=== PATIENT | male | born 1985 | race Caucasian/White ===

== ENCOUNTER 2017-07-09 17:15 | Inpatient (IN) | payer BC, OTHER ==
[2017-07-09] MEDS: morphine 4 MG/ML VIAL IV (19:04)
[2017-07-09] MEDS: ONDANSETRON 4 MG INJ IV (19:05)
[2017-07-09] MEDS: SODIUM CHLORIDE 0.9% 1L BAG IV* (19:05)
[2017-07-09 19:09] LABS: ADD MAN DIFF? NO
[2017-07-09] MEDS: ACETAMINOPHEN 500 MG TAB PO (19:09)
[2017-07-09 19:13] LABS: BASOPHILS % 0.2 % (0.0-2.0); EOSINOPHILS % 0.1 % (0.0-7.0); HEMATOCRIT 32.2 % (42.0-52.0); HEMOGLOBIN 10.3 g/dl (14.0-18.0); LYMPHOCYTES # 1.3 10^3/ul (0.8-2.9); LYMPHOCYTES % 7.3 % (15.0-51.0); MEAN CORPUSCULAR HEMOGLOBIN 24.2 pg (29.0-33.0); MEAN CORPUSCULAR VOLUME 75.8 fl (82.0-101.0); MEAN PLATELET VOLUME 9.1 fl (7.4-10.4); MONOCYTE # 1.2 10^3/ul (0.3-0.9); MONOCYTES % 6.7 % (0.0-11.0); NEUTROPHIL # 15.4 10^3/ul (1.6-7.5); NEUTROPHILS % 85.2 % (39.0-77.0); PLATELET COUNT 539 10^3/UL (140-415); RED BLOOD COUNT 4.25 10^6/ul (4.70-6.10); RED CELL DISTRIBUTION WIDTH 14.6 % (11.5-14.5)
[2017-07-09 19:34] LABS: ALANINE AMINOTRANSFERASE 57 IU/L (13-69); ALBUMIN 3.9 g/dl (3.3-4.9); ALBUMIN/GLOBULIN RATIO 0.78; ALKALINE PHOSPHATASE 403 IU/L (42-121); ANION GAP 18 (8-16); ASPARTATE AMINO TRANSFERASE 53 IU/L (15-46); BILIRUBIN,INDIRECT 0.4 mg/dl (0-1.1); BILIRUBIN,TOTAL 0.4 mg/dl (0.2-1.3); BLOOD UREA NITROGEN 15 mg/dl (7-20); CALCIUM 9.1 mg/dl (8.4-10.2); CARBON DIOXIDE 29 mmol/L (21-31); CHLORIDE 96 mmol/L (97-110); CREATININE 0.88 mg/dl (0.61-1.24); GLUCOSE 116 mg/dl (70-220); LIPASE 145 U/L (23-300); POTASSIUM 3.9 mmol/L (3.5-5.1); SODIUM 139 mmol/L (135-144); TOTAL PROTEIN 8.9 g/dl (6.1-8.1)
[2017-07-09 19:41] LABS: LACTIC ACID 1.3 mmol/L (0.5-2.0)
[2017-07-09 19:46] LABS: TROPONIN-I < 0.012 ng/ml (0.000-0.120)
[2017-07-09] MEDS: PIPER-TAZO 3.375 GM IV (PMX) 100 ML IVPB (19:46)
[2017-07-09 19:48] LABS: INR 1.12; PARTIAL THROMBOPLASTIN TIME 36.5 Sec (25.0-35.0); PROTIME 14.6 Sec (11.9-14.9); PT RATIO 1.1
[2017-07-09 20:21] LABS: ADD UMIC YES; UR ASCORBIC ACID NEGATIVE (NEGATIVE); UR BILIRUBIN (Dip) NEGATIVE (NEGATIVE); UR BLOOD (Dip) 1+ mg/dL (NEGATIVE); UR CLARITY CLEAR (CLEAR); UR COLOR YELLOW (YELLOW); UR GLUCOSE (Dip) NEGATIVE (NEGATIVE); UR KETONES (Dip) NEGATIVE (NEGATIVE); UR LEUKOCYTE ESTERASE (Dip) NEGATIVE Leu/ul (NEGATIVE); UR NITRITE (Dip) NEGATIVE (NEGATIVE); UR RBC 1 /HPF (0-5); UR SPECIFIC GRAVITY (Dip) 1.014 (1.003-1.030); UR TOTAL PROTEIN (Dip) 2+ mg/dl (NEGATIVE); UR UROBILINOGEN (Dip) 2+ mg/dL (NEGATIVE); UR WBC 2 /HPF (0-5)
[2017-07-09] MEDS: IOHEXOL 300MG/ML 150 ML BTL (20:40)
[2017-07-09] MEDS: SOD CHLORIDE 0.9% 100 ML (20:40)
[2017-07-09] MEDS: VANCOMYCIN 1 GM (PMX) 250 ML IVPB (21:00)
[2017-07-09 21:47] LABS: LACTIC ACID 0.8 mmol/L (0.5-2.0)
[2017-07-09] MEDS: HYDROmorphONE 1 MG/5 ML IV SYRINGE IV (22:06)
[2017-07-09] MEDS ORDERED: VANCOMYCIN IV PER PHARMACY XX (22:30)
[2017-07-09] MEDS ORDERED: NACL 0.9% 3 ML SYG IV (22:30)
[2017-07-09] MEDS ORDERED: ONDANSETRON 4 MG INJ IV (22:30)
[2017-07-09] MEDS: SOD CHLORIDE 0.9% 1,000 ML IV (22:47)
[2017-07-09 23:01] LABS: GAMMA GLUTAMYL TRANSPEPTIDASE 221 IU/L (0-50)
[2017-07-10] MEDS: SOD CHLORIDE 0.9% 500 ML IV ×2 (01:14→06:00)
[2017-07-10] MEDS: ACETAMINOPHEN 325 MG TAB PO (01:26)
[2017-07-10] MEDS: HYDROmorphONE 0.5 MG/0.5 ML SYG IV ×4 (01:32→22:36)
[2017-07-10] MEDS: PIPER-TAZO 3.375 GM IV (PMX) 100 ML IVPB ×3 (02:51→11:31)
[2017-07-10] MEDS: VANCOMYCIN 1 GM 250 ML IVPB ×2 (04:28→14:30)
[2017-07-10 06:27] LABS: ADD MAN DIFF? NO
[2017-07-10 06:36] LABS: WHITE BLOOD COUNT 18.7 10^3/ul (4.8-10.8)
[2017-07-10 06:36] LABS: ABNORMAL IP MESSAGE 1; BASOPHILS % 0.2 % (0.0-2.0); EOSINOPHILS % 0.1 % (0.0-7.0); HEMATOCRIT 28.8 % (42.0-52.0); HEMOGLOBIN 9.2 g/dl (14.0-18.0); LYMPHOCYTES # 1.7 10^3/ul (0.8-2.9); LYMPHOCYTES % 9.2 % (15.0-51.0); MEAN CORPUSCULAR HEMOGLOBIN 24.7 pg (29.0-33.0); MEAN CORPUSCULAR HGB CONC 31.9 g/dl (32.0-37.0); MEAN CORPUSCULAR VOLUME 77.2 fl (82.0-101.0); MEAN PLATELET VOLUME 9.3 fl (7.4-10.4); MONOCYTE # 1.7 10^3/ul (0.3-0.9); MONOCYTES % 8.9 % (0.0-11.0); NEUTROPHIL # 15.1 10^3/ul (1.6-7.5); NEUTROPHILS % 80.7 % (39.0-77.0); PLATELET COUNT 482 10^3/UL (140-415); POSITIVE DIFF @See below; RED BLOOD COUNT 3.73 10^6/ul (4.70-6.10); RED CELL DISTRIBUTION WIDTH 14.8 % (11.5-14.5)
[2017-07-10] MEDS: IBUPROFEN 600 MG TAB PO (06:43)
[2017-07-10 06:58] LABS: IRON 26 ug/dl (35-150)
[2017-07-10 06:58] LABS: HEMOGLOBIN A1C 5.8 % (0-5.9)
[2017-07-10 07:06] LABS: ALANINE AMINOTRANSFERASE 46 IU/L (13-69); ALBUMIN 3.1 g/dl (3.3-4.9); ALBUMIN/GLOBULIN RATIO 0.75; ALKALINE PHOSPHATASE 344 IU/L (42-121); ANION GAP 12 (8-16); ASPARTATE AMINO TRANSFERASE 40 IU/L (15-46); BILIRUBIN,INDIRECT 0.3 mg/dl (0-1.1); BILIRUBIN,TOTAL 0.3 mg/dl (0.2-1.3); BLOOD UREA NITROGEN 10 mg/dl (7-20); CALCIUM 8.4 mg/dl (8.4-10.2); CARBON DIOXIDE 30 mmol/L (21-31); CHLORIDE 105 mmol/L (97-110); CHOL/HDL RATIO 7.7 RATIO; CHOLESTEROL 147 mg/dl (100-200); CREATININE 0.96 mg/dl (0.61-1.24); GLUCOSE 88 mg/dl (70-220); HDL CHOLESTEROL 19 mg/dl (28-63); LDL CHOLESTEROL,CALCULATED 107 mg/dl; MAGNESIUM 1.9 mg/dl (1.7-2.5); POTASSIUM 4.2 mmol/L (3.5-5.1); SODIUM 143 mmol/L (135-144); TOTAL PROTEIN 7.2 g/dl (6.1-8.1); TRIGLYCERIDES 107 mg/dl (0-149)
[2017-07-10 07:07] LABS: % IRON SATURATION 14 % SAT (22-52); TOTAL IRON BINDING CAPACITY 192 ug/dl (241-421)
[2017-07-10 08:00] LABS: CARCINOEMBRYONIC ANTIGEN 0.3 ng/ml (0.0-5.0)
[2017-07-10] MEDS: SOD CHLORIDE 0.9% 1,000 ML IV ×2 (08:21→08:23)
[2017-07-10] MEDS ORDERED: MIDAZOLAM 1 MG/ML 2 ML INJ (12:13)
[2017-07-10] MEDS ORDERED: FENTAnyl 50 MCG/ML VIAL ×2 (12:13→12:36)
[2017-07-10] MEDS ORDERED: PROPOFOL 20 ML (12:13)
[2017-07-10] MEDS ORDERED: CEFAZOLIN 1 GM INJ (12:36)
[2017-07-10] MEDS ORDERED: METOCLOPRAMIDE 10 MG INJ (12:38)
[2017-07-10] MEDS ORDERED: KETOROLAC 30 MG INJ (12:38)
[2017-07-10] MEDS ORDERED: DEXAMETHASONE 4 MG/ML 1 ML INJ (12:38)
[2017-07-10] MEDS ORDERED: ONDANSETRON 4 MG INJ (12:38)
[2017-07-10] MEDS ORDERED: BUPIVACAINE 0.5% (SDV) 30 ML INJ (12:42)
[2017-07-10] MEDS ORDERED: IBUPROFEN 600 MG TAB PO (13:00)
[2017-07-10] MEDS ORDERED: ACETAMINOPHEN 325 MG TAB PO (13:00)
[2017-07-10] MEDS ORDERED: HYDROmorphONE 0.5 MG/0.5 ML SYG IV (13:00)
[2017-07-10] MEDS ORDERED: HYDROCODONE/APAP (10/325) TAB PO (13:00)
[2017-07-10] MEDS ORDERED: ONDANSETRON 4 MG INJ IV ×2 (13:00→13:30)
[2017-07-10] MEDS: metroNIDAZOLE 500 MG/NS (PMX) 100 ML IVPB ×2 (13:24→21:23)
[2017-07-10] MEDS ORDERED: FENTAnyl 50 MCG/ML VIAL IV ×3 (13:30)
[2017-07-10] MEDS ORDERED: OXYCODONE/ACETAMINOPHEN (5/325) TAB PO ×2 (13:30)
[2017-07-10] MEDS ORDERED: hydrALAzine 20 MG INJ IV (13:30)
[2017-07-10] MEDS ORDERED: METOCLOPRAMIDE 10 MG INJ IV (13:30)
[2017-07-10] MEDS ORDERED: HYDROmorphONE (0.2 MG/ML) 10ML SYG IV ×3 (13:30)
[2017-07-10] MEDS ORDERED: EPHEDrine SULFATE 50 MG/5 ML SYG IV (13:30)
[2017-07-10] MEDS ORDERED: MEPERIDINE 25 MG INJ IV (13:30)
[2017-07-10] MEDS ORDERED: LABETALOL HCL 20MG INJ IV (13:30)
[2017-07-10] MEDS ORDERED: DIPHENHYDRAMINE 50 MG INJ IV (13:30)
[2017-07-10] MEDS: CIPROFLOXACIN 400MG/D5W 200 ML IVPB (14:00)
[2017-07-10] MEDS: D5-NS + KCL 20 MEQ 1,000 ML IV (14:44)
[2017-07-10] MEDS: metroNIDAZOLE 500 MG TAB PO (15:58)
[2017-07-10] MEDS: CIPROFLOXACIN 500 MG TAB NGT (18:38)
[2017-07-10] MEDS ORDERED: VANCOMYCIN 1 GM 250 ML IVPB (23:00)
[2017-07-11] MEDS: CIPROFLOXACIN 400MG/D5W 200 ML IVPB (01:59)
[2017-07-11] MEDS: metroNIDAZOLE 500 MG/NS (PMX) 100 ML IVPB (05:13)
[2017-07-11] MEDS: HYDROmorphONE 0.5 MG/0.5 ML SYG IV ×4 (05:26→21:25)
[2017-07-11 05:59] LABS: BLOOD UREA NITROGEN 9 mg/dl (7-20)
[2017-07-11 05:59] LABS: CREATININE 0.78 mg/dl (0.61-1.24)
[2017-07-11] MEDS: D5-NS + KCL 20 MEQ 1,000 ML IV ×2 (06:47→13:26)
[2017-07-11] MEDS: ENOXAPARIN 40 MG/0.4 ML SYG SC (06:47)
[2017-07-11] MEDS: CIPROFLOXACIN 500 MG TAB NGT (17:33)
[2017-07-11] MEDS: metroNIDAZOLE 500 MG TAB PO (21:25)
[2017-07-11 23:51] LABS: ALPHA FETOPROTEIN 0.94 IU/L (0.00-7.21)
[2017-07-12] MEDS: HYDROmorphONE 0.5 MG/0.5 ML SYG IV ×2 (02:01→08:15)
[2017-07-12] MEDS: ENOXAPARIN 40 MG/0.4 ML SYG SC (05:52)
[2017-07-12] MEDS: CIPROFLOXACIN 500 MG TAB NGT ×2 (05:52→17:48)
[2017-07-12] MEDS: metroNIDAZOLE 500 MG TAB PO ×3 (05:52→22:08)
[2017-07-12] MEDS: HYDROmorphONE 2 MG/ML SYG IV ×3 (11:42→23:09)
[2017-07-12] MEDS: hydrALAzine 20 MG INJ IV (15:13)
[2017-07-12] MEDS: NS + KCL 20 MEQ 1,000 ML IV ×2 (15:13→22:30)
[2017-07-12] MEDS ORDERED: MIDAZOLAM 1 MG/ML 2 ML INJ (19:23)
[2017-07-12] MEDS ORDERED: IOHEXOL 300MG/ML 30 ML BTL (19:40)
[2017-07-12] MEDS ORDERED: CEFAZOLIN 1 GM INJ (20:12)
[2017-07-12] MEDS ORDERED: LIDOCAINE 2% (SDV) 5 ML INJ (20:12)
[2017-07-12] MEDS ORDERED: PROPOFOL 20 ML (20:12)
[2017-07-12 20:13] LABS: PSA, FREE 0.1 ng/mL
[2017-07-12] MEDS ORDERED: ONDANSETRON 4 MG INJ (20:13)
[2017-07-12] MEDS ORDERED: LABETALOL HCL 20MG INJ (20:26)
[2017-07-12] MEDS ORDERED: hydrALAzine 20 MG INJ IV (20:30)
[2017-07-12] MEDS ORDERED: DIPHENHYDRAMINE 50 MG INJ IV (20:30)
[2017-07-12] MEDS ORDERED: FENTAnyl 50 MCG/ML VIAL IV (20:30)
[2017-07-12] MEDS ORDERED: MEPERIDINE 25 MG INJ IV (20:30)
[2017-07-12] MEDS ORDERED: ONDANSETRON 4 MG INJ IV (20:30)
[2017-07-12] MEDS ORDERED: HYDROmorphONE (0.2 MG/ML) 10ML SYG IV ×2 (20:30)
[2017-07-12] MEDS: IOHEXOL 300MG/ML 30 ML BTL (20:31)
[2017-07-12] MEDS: LABETALOL HCL 20MG INJ IV (20:56)
[2017-07-13] MEDS: HYDROmorphONE 2 MG/ML SYG IV ×3 (03:25→12:24)
[2017-07-13] MEDS: metroNIDAZOLE 500 MG TAB PO ×2 (06:15→14:33)
[2017-07-13] MEDS: CIPROFLOXACIN 500 MG TAB NGT (06:15)
[2017-07-13] MEDS: ENOXAPARIN 40 MG/0.4 ML SYG SC (06:35)
[2017-07-13 06:46] LABS: ADD MAN DIFF? NO
[2017-07-13 06:58] LABS: BASOPHILS % 0.4 % (0.0-2.0); EOSINOPHILS # 0.2 10^3/ul (0.0-0.5); EOSINOPHILS % 2.2 % (0.0-7.0); HEMATOCRIT 29.8 % (42.0-52.0); HEMOGLOBIN 9.5 g/dl (14.0-18.0); LYMPHOCYTES # 1.7 10^3/ul (0.8-2.9); LYMPHOCYTES % 16.7 % (15.0-51.0); MEAN CORPUSCULAR HEMOGLOBIN 24.2 pg (29.0-33.0); MEAN CORPUSCULAR HGB CONC 31.9 g/dl (32.0-37.0); MEAN CORPUSCULAR VOLUME 75.8 fl (82.0-101.0); MEAN PLATELET VOLUME 8.9 fl (7.4-10.4); MONOCYTES % 9.9 % (0.0-11.0); NEUTROPHIL # 6.9 10^3/ul (1.6-7.5); NEUTROPHILS % 69.8 % (39.0-77.0); PLATELET COUNT 598 10^3/UL (140-415); RED BLOOD COUNT 3.93 10^6/ul (4.70-6.10); RED CELL DISTRIBUTION WIDTH 14.8 % (11.5-14.5)
[2017-07-13 06:58] LABS: WHITE BLOOD COUNT 9.9 10^3/ul (4.8-10.8)
[2017-07-13 07:17] LABS: ANION GAP 16 (8-16); BLOOD UREA NITROGEN 12 mg/dl (7-20); CALCIUM 8.8 mg/dl (8.4-10.2); CARBON DIOXIDE 28 mmol/L (21-31); CHLORIDE 104 mmol/L (97-110); CREATININE 0.81 mg/dl (0.61-1.24); GLUCOSE 100 mg/dl (70-220); POTASSIUM 3.6 mmol/L (3.5-5.1); SODIUM 144 mmol/L (135-144)
[2017-07-13] MEDS: NS + KCL 20 MEQ 1,000 ML IV (08:02)
[2017-07-13] MEDS: METOPROLOL (XL) 50 MG TAB PO (11:28)
[2017-07-13] MEDS: AMLODIPINE 5 MG TAB PO (11:30)
== END 2017-07-13 15:45 | disposition home or self-care (01) | DRG 345 ==
LOC: MS4 22:26 → E/R 17:15 → PP2 07-10 19:12
PROC: 0D9P0ZZ Drainage of Rectum, Open Approach (ICD-10-PCS; principal; 2017-07-10 11:11)
PROC: BT14ZZZ Fluoroscopy of Kidneys, Ureters and Bladder (ICD-10-PCS; 2017-07-10 12:27)
PROC: 0T778DZ Dilation of Left Ureter with Intraluminal Device, Via Natural or Artificial Opening Endoscopic (ICD-10-PCS; 2017-07-10 12:27)
DX: K61.1 Rectal abscess (principal); N13.1 Hydronephrosis with ureteral stricture, not elsewhere classified; C79.9 Secondary malignant neoplasm of unspecified site; Z85.47 Personal history of malignant neoplasm of testis; D50.9 Iron deficiency anemia, unspecified; R74.8 Abnormal levels of other serum enzymes; E66.9 Obesity, unspecified; I10 Essential (primary) hypertension; F41.9 Anxiety disorder, unspecified; R59.0 Localized enlarged lymph nodes; Z68.30 Body mass index [BMI] 30.0-30.9, adult
CPT/HCPCS: 36415; 71045; 74018; 74177; 74430; 76705; 80048; 80053; 80061; 81001; 82105; 82378; 82565; 82977; 83036; 83540; 83605; 83690; 83735; 84153; 84154; 84443; 84484; 84520; 84702; 85025; 85610; 85730; 87040; 87070; 87075; 87086; 93005; 96365; 96366; 96367; 96375; 99291-25

== ENCOUNTER 2018-03-16 05:19 | Emergency (ER) | payer BC ==
[2018-03-16] MEDS: morphine 4 MG/ML VIAL IV (06:08)
[2018-03-16 06:25] LABS: ADD MAN DIFF? NO
[2018-03-16 06:29] LABS: BASOPHILS % 0.5 % (0.0-2.0); EOSINOPHILS # 0.1 10^3/ul (0.0-0.5); EOSINOPHILS % 1.3 % (0.0-7.0); HEMOGLOBIN 10.5 g/dl (14.0-18.0); LYMPHOCYTES # 1.6 10^3/ul (0.8-2.9); LYMPHOCYTES % 20.4 % (15.0-51.0); MEAN CORPUSCULAR HEMOGLOBIN 23.3 pg (29.0-33.0); MEAN CORPUSCULAR HGB CONC 30.9 g/dl (32.0-37.0); MEAN CORPUSCULAR VOLUME 75.4 fl (82.0-101.0); MEAN PLATELET VOLUME 9.2 fl (7.4-10.4); MONOCYTE # 0.6 10^3/ul (0.3-0.9); MONOCYTES % 7.3 % (0.0-11.0); NEUTROPHIL # 5.4 10^3/ul (1.6-7.5); NEUTROPHILS % 70.2 % (39.0-77.0); PLATELET COUNT 482 10^3/UL (140-415); RED BLOOD COUNT 4.51 10^6/ul (4.70-6.10); RED CELL DISTRIBUTION WIDTH 14.3 % (11.5-14.5)
[2018-03-16 06:29] LABS: WHITE BLOOD COUNT 7.7 10^3/ul (4.8-10.8)
[2018-03-16 06:39] LABS: ANION GAP 4 (5-13); BLOOD UREA NITROGEN 14 mg/dl (7-20); CALCIUM 9.5 mg/dl (8.4-10.2); CARBON DIOXIDE 29 mmol/L (21-31); CHLORIDE 109 mmol/L (97-110); CREATININE 0.84 mg/dl (0.61-1.24); Estimated GFR > 60 mL/min (>60); GLUCOSE 113 mg/dl (70-220); POTASSIUM 4.7 mmol/L (3.5-5.1); SODIUM 142 mmol/L (135-144)
[2018-03-16] MEDS: SOD CHLORIDE 0.9% 100 ML (07:05)
[2018-03-16] MEDS: IOHEXOL 300MG/ML 150 ML BTL (07:05)
[2018-03-16] MEDS: HYDROmorphONE 0.5 MG/0.5 ML SYG IV (08:30)
== END 2018-03-16 08:53 | disposition home or self-care (01) ==
LOC: E/R 08:53
DX: M54.9 Dorsalgia, unspecified (principal); I10 Essential (primary) hypertension; C62.90 Malignant neoplasm of unspecified testis, unspecified whether descended or undescended
CPT/HCPCS: 36415; 71045; 71260; 80048; 85025; 96374; 96375; 99285-25

== ENCOUNTER 2018-04-15 19:42 | Inpatient (IN) | payer BC ==
[2018-04-15 21:26] LABS: ADD MAN DIFF? NO
[2018-04-15 21:29] LABS: WHITE BLOOD COUNT 16.2 10^3/ul (4.8-10.8)
[2018-04-15 21:29] LABS: BASOPHILS % 0.2 % (0.0-2.0); HEMATOCRIT 29.5 % (42.0-52.0); HEMOGLOBIN 9.2 g/dl (14.0-18.0); LYMPHOCYTES # 1.5 10^3/ul (0.8-2.9); LYMPHOCYTES % 9.3 % (15.0-51.0); MEAN CORPUSCULAR HEMOGLOBIN 22.1 pg (29.0-33.0); MEAN CORPUSCULAR HGB CONC 31.2 g/dl (32.0-37.0); MEAN CORPUSCULAR VOLUME 70.9 fl (82.0-101.0); MEAN PLATELET VOLUME 8.5 fl (7.4-10.4); MONOCYTE # 1.3 10^3/ul (0.3-0.9); MONOCYTES % 8.2 % (0.0-11.0); NEUTROPHIL # 13.2 10^3/ul (1.6-7.5); NEUTROPHILS % 81.4 % (39.0-77.0); PLATELET COUNT 577 10^3/UL (140-415); RED BLOOD COUNT 4.16 10^6/ul (4.70-6.10); RED CELL DISTRIBUTION WIDTH 16.4 % (11.5-14.5)
[2018-04-15] MEDS: IBUPROFEN 600 MG TAB PO (21:37)
[2018-04-15] MEDS: SODIUM CHLORIDE 0.9% 1L BAG IV* (21:38)
[2018-04-15] MEDS: VANCOMYCIN 1 GM (PMX) 250 ML IVPB (21:39)
[2018-04-15] MEDS: CEFTRIAXONE 1 GM/50 ML (PMX) 50 ML IVPB (21:43)
[2018-04-15 21:45] LABS: ALANINE AMINOTRANSFERASE 20 IU/L (13-69); ALBUMIN 3.9 g/dl (3.3-4.9); ALBUMIN/GLOBULIN RATIO 0.69; ALKALINE PHOSPHATASE 791 IU/L (42-121); ANION GAP 14 (5-13); ASPARTATE AMINO TRANSFERASE 63 IU/L (15-46); BILIRUBIN,INDIRECT 0.4 mg/dl (0-1.1); BILIRUBIN,TOTAL 0.4 mg/dl (0.2-1.3); BLOOD UREA NITROGEN 18 mg/dl (7-20); CALCIUM 9.4 mg/dl (8.4-10.2); CARBON DIOXIDE 25 mmol/L (21-31); CHLORIDE 95 mmol/L (97-110); CREATININE 1.27 mg/dl (0.61-1.24); Estimated GFR > 60 mL/min (>60); GLUCOSE 127 mg/dl (70-220); LIPASE 55 U/L (23-300); POTASSIUM 4.3 mmol/L (3.5-5.1); SODIUM 134 mmol/L (135-144); TOTAL PROTEIN 9.5 g/dl (6.1-8.1)
[2018-04-15 21:48] LABS: INR 1.33; PROTIME 16.6 Sec (11.9-14.9); PT RATIO 1.3
[2018-04-15 21:49] LABS: PARTIAL THROMBOPLASTIN TIME 40.5 Sec (23.0-35.0)
[2018-04-15 21:54] LABS: ADD UMIC YES; UR ASCORBIC ACID NEGATIVE (NEGATIVE); UR BILIRUBIN (Dip) NEGATIVE (NEGATIVE); UR BLOOD (Dip) 2+ mg/dL (NEGATIVE); UR CLARITY CLOUDY (CLEAR); UR COLOR AMBER (YELLOW); UR GLUCOSE (Dip) NEGATIVE (NEGATIVE); UR KETONES (Dip) NEGATIVE (NEGATIVE); UR LEUKOCYTE ESTERASE (Dip) NEGATIVE Leu/ul (NEGATIVE); UR MUCUS FEW /HPF (NONE SEEN); UR NITRITE (Dip) NEGATIVE (NEGATIVE); UR RBC 92 /HPF (0-5); UR SPECIFIC GRAVITY (Dip) 1.021 (1.003-1.030); UR TOTAL PROTEIN (Dip) 2+ mg/dl (NEGATIVE); UR UROBILINOGEN (Dip) 2+ mg/dL (NEGATIVE); UR WBC 11 /HPF (0-5)
[2018-04-15 21:56] LABS: TROPONIN-I < 0.012 ng/ml (0.000-0.120)
[2018-04-15] MEDS ORDERED: DOCUSATE SODIUM 100 MG CAP PO (22:30)
[2018-04-15] MEDS ORDERED: BISACODYL (EC) 5 MG TAB PO (22:30)
[2018-04-15] MEDS ORDERED: ONDANSETRON 4 MG INJ IV (22:30)
[2018-04-15] MEDS ORDERED: NACL 0.9% 3 ML SYG IV (22:30)
[2018-04-16] MEDS: AZITHROMYCIN 500MG/NS (PMX) 250 ML IVPB (01:54)
[2018-04-16] MEDS: SOD CHLORIDE 0.9% 1,000 ML IV ×2 (01:54→09:11)
[2018-04-16] MEDS: HYDROmorphONE 2 MG TAB PO ×3 (02:06→19:50)
[2018-04-16 02:20] LABS: LACTIC ACID 1.2 mmol/L (0.5-2.0)
[2018-04-16] MEDS: POLYETHYLENE GLYCOL 17 GM PACKET PO ×2 (02:27→08:21)
[2018-04-16] MEDS: DOCUSATE SODIUM 100 MG CAP PO ×3 (02:27→20:56)
[2018-04-16] MEDS: PIPER-TAZO 3.375 GM IV (PMX) 100 ML IVPB ×4 (05:40→23:47)
[2018-04-16] MEDS ORDERED: VANCOMYCIN IV PER PHARMACY XX (06:00)
[2018-04-16 06:22] LABS: ADD MAN DIFF? NO
[2018-04-16 06:28] LABS: ABNORMAL IP MESSAGE 1; BASOPHILS % 0.1 % (0.0-2.0); EOSINOPHILS % 0.1 % (0.0-7.0); HEMATOCRIT 26.2 % (42.0-52.0); HEMOGLOBIN 8.1 g/dl (14.0-18.0); LYMPHOCYTES # 1.4 10^3/ul (0.8-2.9); LYMPHOCYTES % 8.7 % (15.0-51.0); MEAN CORPUSCULAR HEMOGLOBIN 22.4 pg (29.0-33.0); MEAN CORPUSCULAR HGB CONC 30.9 g/dl (32.0-37.0); MEAN CORPUSCULAR VOLUME 72.4 fl (82.0-101.0); MEAN PLATELET VOLUME 8.6 fl (7.4-10.4); MONOCYTE # 1.8 10^3/ul (0.3-0.9); NEUTROPHIL # 12.7 10^3/ul (1.6-7.5); NEUTROPHILS % 78.9 % (39.0-77.0); PLATELET COUNT 436 10^3/UL (140-415); POSITIVE DIFF @See below; RED BLOOD COUNT 3.62 10^6/ul (4.70-6.10); RED CELL DISTRIBUTION WIDTH 16.5 % (11.5-14.5)
[2018-04-16 06:28] LABS: WHITE BLOOD COUNT 16.1 10^3/ul (4.8-10.8)
[2018-04-16 06:56] LABS: ALANINE AMINOTRANSFERASE 21 IU/L (13-69); ALBUMIN 3.1 g/dl (3.3-4.9); ALBUMIN/GLOBULIN RATIO 0.64; ALKALINE PHOSPHATASE 668 IU/L (42-121); ANION GAP 10 (5-13); ASPARTATE AMINO TRANSFERASE 49 IU/L (15-46); BILIRUBIN,INDIRECT 0.4 mg/dl (0-1.1); BILIRUBIN,TOTAL 0.4 mg/dl (0.2-1.3); BLOOD UREA NITROGEN 15 mg/dl (7-20); CALCIUM 8.5 mg/dl (8.4-10.2); CARBON DIOXIDE 25 mmol/L (21-31); CHLORIDE 105 mmol/L (97-110); CHOL/HDL RATIO 7.5 RATIO; CHOLESTEROL 144 mg/dl (100-200); CREATININE 0.97 mg/dl (0.61-1.24); Estimated GFR > 60 mL/min (>60); GLUCOSE 92 mg/dl (70-220); HDL CHOLESTEROL 19 mg/dl (28-63); LDL CHOLESTEROL,CALCULATED 106 mg/dl; MAGNESIUM 1.7 mg/dl (1.7-2.5); SODIUM 140 mmol/L (135-144); TOTAL PROTEIN 7.9 g/dl (6.1-8.1); TRIGLYCERIDES 93 mg/dl (0-149)
[2018-04-16 07:18] LABS: THYROID STIMULATING HORMONE 0.609 MIU/L (0.465-4.680)
[2018-04-16] MEDS: ENOXAPARIN 40 MG/0.4 ML SYG SC (08:19)
[2018-04-16] MEDS: METOPROLOL (XL) 50 MG TAB PO (08:21)
[2018-04-16] MEDS: AMLODIPINE 5 MG TAB PO (08:22)
[2018-04-16] MEDS ORDERED: VANCOMYCIN HCL 1.25 GM in SOD CHLORIDE 0.9% 250 ML IVPB (09:00)
[2018-04-16] MEDS: VANCOMYCIN 1 GM 250 ML IVPB ×2 (09:36→16:18)
[2018-04-16] MEDS: ACETAMINOPHEN 325 MG TAB PO ×3 (10:18→16:28)
[2018-04-16] MEDS ORDERED: CEFTRIAXONE 1 GM/50 ML (PMX) 50 ML IVPB ×2 (22:30)
[2018-04-16] MEDS: HYDROmorphONE 1 MG/ML SYG IV (23:47)
[2018-04-17] MEDS: VANCOMYCIN 1 GM 250 ML IVPB ×3 (00:48→21:57)
[2018-04-17] MEDS: ACETAMINOPHEN 325 MG TAB PO ×3 (03:32→17:10)
[2018-04-17] MEDS: HYDROmorphONE 1 MG/ML SYG IV ×4 (04:31→20:37)
[2018-04-17] MEDS: SOD CHLORIDE 0.9% 1,000 ML IV (04:31)
[2018-04-17] MEDS: MEROPENEM 1 GM/50ML(PMX) 50 ML IVPB ×2 (05:36→14:00)
[2018-04-17 05:57] LABS: ADD MAN DIFF? NO
[2018-04-17 06:06] LABS: ABNORMAL IP MESSAGE 1; BASOPHILS % 0.2 % (0.0-2.0); EOSINOPHILS % 0.1 % (0.0-7.0); HEMATOCRIT 21.6 % (42.0-52.0); LYMPHOCYTES # 1.6 10^3/ul (0.8-2.9); LYMPHOCYTES % 10.4 % (15.0-51.0); MEAN CORPUSCULAR HGB CONC 31.9 g/dl (32.0-37.0); MEAN PLATELET VOLUME 8.9 fl (7.4-10.4); MONOCYTE # 1.7 10^3/ul (0.3-0.9); NEUTROPHIL # 12.3 10^3/ul (1.6-7.5); NEUTROPHILS % 77.5 % (39.0-77.0); PLATELET COUNT 459 10^3/UL (140-415); POSITIVE DIFF @See below; RED CELL DISTRIBUTION WIDTH 16.6 % (11.5-14.5)
[2018-04-17 06:06] LABS: WHITE BLOOD COUNT 15.8 10^3/ul (4.8-10.8)
[2018-04-17 06:14] LABS: HEMOGLOBIN 6.9 g/dl (14.0-18.0)
[2018-04-17 06:59] LABS: PHOSPHORUS 3.4 mg/dl (2.5-4.9)
[2018-04-17 06:59] LABS: MAGNESIUM 1.8 mg/dl (1.7-2.5)
[2018-04-17 07:07] LABS: ALBUMIN 2.9 g/dl (3.3-4.9); ALBUMIN/GLOBULIN RATIO 0.63; ASPARTATE AMINO TRANSFERASE 38 IU/L (15-46); BILIRUBIN,INDIRECT 0.3 mg/dl (0-1.1); BILIRUBIN,TOTAL 0.3 mg/dl (0.2-1.3); BLOOD UREA NITROGEN 12 mg/dl (7-20); CALCIUM 8.2 mg/dl (8.4-10.2); CARBON DIOXIDE 23 mmol/L (21-31); CHLORIDE 105 mmol/L (97-110); CREATININE 1.08 mg/dl (0.61-1.24); Estimated GFR > 60 mL/min (>60); GLUCOSE 96 mg/dl (70-220); POTASSIUM 3.4 mmol/L (3.5-5.1); TOTAL PROTEIN 7.5 g/dl (6.1-8.1)
[2018-04-17 07:09] LABS: ALANINE AMINOTRANSFERASE 23 IU/L (13-69); SODIUM 136 mmol/L (135-144)
[2018-04-17 07:11] LABS: ALKALINE PHOSPHATASE 585 IU/L (42-121); ANION GAP 8 (5-13)
[2018-04-17 08:33] LABS: VANCOMYCIN,TROUGH 14.8 ug/ml (10.0-20.0)
[2018-04-17] MEDS: POLYETHYLENE GLYCOL 17 GM PACKET PO (09:00)
[2018-04-17] MEDS: DOCUSATE SODIUM 100 MG CAP PO ×2 (09:00→21:00)
[2018-04-17] MEDS: METOPROLOL (XL) 50 MG TAB PO (09:02)
[2018-04-17] MEDS: AMLODIPINE 5 MG TAB PO (09:03)
[2018-04-17] MEDS: ENOXAPARIN 40 MG/0.4 ML SYG SC (09:04)
[2018-04-17] MEDS: HYDROmorphONE 2 MG TAB PO (12:06)
[2018-04-17 12:27] LABS: IRON 11 ug/dl (35-150)
[2018-04-17 12:37] LABS: % IRON SATURATION 6 % SAT (22-52); TOTAL IRON BINDING CAPACITY 176 ug/dl (241-421)
[2018-04-17 13:44] LABS: IMMEDIATE SPIN CROSSMATCH 1 2
[2018-04-17] MEDS: IOHEXOL 300MG/ML 150 ML BTL (17:57)
[2018-04-17] MEDS: SOD CHLORIDE 0.9% 100 ML (17:57)
[2018-04-17] MEDS: BARIUM SULF 2% 450 ML BTL (BERRY SMOOTHIE) PO (19:00)
[2018-04-17] MEDS: POTASSIUM CHLORIDE (SR) 10 MEQ TAB PO (21:55)
[2018-04-17 23:14] LABS: ADD MAN DIFF? NO
[2018-04-17 23:15] LABS: BASOPHILS % 0.1 % (0.0-2.0); EOSINOPHILS % 0.2 % (0.0-7.0); HEMATOCRIT 27.5 % (42.0-52.0); HEMOGLOBIN 8.6 g/dl (14.0-18.0); LYMPHOCYTES # 1.5 10^3/ul (0.8-2.9); LYMPHOCYTES % 9.5 % (15.0-51.0); MEAN CORPUSCULAR HEMOGLOBIN 22.9 pg (29.0-33.0); MEAN CORPUSCULAR HGB CONC 31.3 g/dl (32.0-37.0); MEAN CORPUSCULAR VOLUME 73.3 fl (82.0-101.0); MEAN PLATELET VOLUME 8.3 fl (7.4-10.4); MONOCYTE # 1.3 10^3/ul (0.3-0.9); NEUTROPHIL # 12.7 10^3/ul (1.6-7.5); NEUTROPHILS % 81.5 % (39.0-77.0); PLATELET COUNT 536 10^3/UL (140-415); RED BLOOD COUNT 3.75 10^6/ul (4.70-6.10); RED CELL DISTRIBUTION WIDTH 18.3 % (11.5-14.5)
[2018-04-17 23:15] LABS: WHITE BLOOD COUNT 15.6 10^3/ul (4.8-10.8)
[2018-04-18] MEDS: MEROPENEM 1 GM/50ML(PMX) 50 ML IVPB ×3 (00:18→21:58)
[2018-04-18] MEDS: HYDROmorphONE 1 MG/ML SYG IV ×6 (00:40→21:58)
[2018-04-18] MEDS: SOD FERRIC GLUC COMPLX 125 MG in SOD CHLORIDE 0.9% 100 ML IVPB (01:06)
[2018-04-18] MEDS: MAGNESIUM SULFATE 2 GM/50 ML 50 ML IVPB (03:06)
[2018-04-18] MEDS: SOD CHLORIDE 0.9% IVPB ×2 (04:53→23:16)
[2018-04-18] MEDS: VORICONAZOLE IVPB ×2 (04:53→23:16)
[2018-04-18 05:37] LABS: ADD MAN DIFF? NO
[2018-04-18 05:43] LABS: WHITE BLOOD COUNT 14.4 10^3/ul (4.8-10.8)
[2018-04-18 05:43] LABS: BASOPHILS % 0.3 % (0.0-2.0); EOSINOPHILS % 0.1 % (0.0-7.0); HEMATOCRIT 27.1 % (42.0-52.0); HEMOGLOBIN 8.5 g/dl (14.0-18.0); LYMPHOCYTES # 1.6 10^3/ul (0.8-2.9); LYMPHOCYTES % 11.3 % (15.0-51.0); MEAN CORPUSCULAR HGB CONC 31.4 g/dl (32.0-37.0); MEAN CORPUSCULAR VOLUME 73.2 fl (82.0-101.0); MEAN PLATELET VOLUME 8.8 fl (7.4-10.4); MONOCYTE # 1.2 10^3/ul (0.3-0.9); NEUTROPHIL # 11.5 10^3/ul (1.6-7.5); NEUTROPHILS % 79.5 % (39.0-77.0); PLATELET COUNT 556 10^3/UL (140-415); RED CELL DISTRIBUTION WIDTH 18.2 % (11.5-14.5)
[2018-04-18 05:44] LABS: RETICULOCYTE RBC 3.65
[2018-04-18 05:44] LABS: RETICULOCYTE COUNT # 0.033 X10^6 (0.020-0.110); RETICULOCYTE COUNT % 0.9 % (0.5-1.5)
[2018-04-18 06:24] LABS: MAGNESIUM 2.5 mg/dl (1.7-2.5)
[2018-04-18 06:24] LABS: PHOSPHORUS 3.5 mg/dl (2.5-4.9)
[2018-04-18 06:30] LABS: B-TYPE NATRIURETIC PEPTIDE 186 PG/ML (0-125)
[2018-04-18 07:02] LABS: ALANINE AMINOTRANSFERASE 16 IU/L (13-69); ALBUMIN 3.2 g/dl (3.3-4.9); ALBUMIN/GLOBULIN RATIO 0.66; ALKALINE PHOSPHATASE 541 IU/L (42-121); ANION GAP 11 (5-13); ASPARTATE AMINO TRANSFERASE 35 IU/L (15-46); BILIRUBIN,INDIRECT 0.4 mg/dl (0-1.1); BILIRUBIN,TOTAL 0.4 mg/dl (0.2-1.3); BLOOD UREA NITROGEN 8 mg/dl (7-20); CARBON DIOXIDE 24 mmol/L (21-31); CHLORIDE 103 mmol/L (97-110); CREATININE 0.81 mg/dl (0.61-1.24); Estimated GFR > 60 mL/min (>60); GLUCOSE 93 mg/dl (70-220); POTASSIUM 3.9 mmol/L (3.5-5.1); SODIUM 138 mmol/L (135-144)
[2018-04-18] MEDS: POTASSIUM CHLORIDE (SR) 20 MEQ TAB PO (08:53)
[2018-04-18] MEDS: METOPROLOL (XL) 50 MG TAB PO (08:53)
[2018-04-18] MEDS: OSELTAMIVIR 75 MG CAP PO ×2 (08:54→20:17)
[2018-04-18] MEDS: DOCUSATE SODIUM 100 MG CAP PO ×2 (08:54→20:17)
[2018-04-18] MEDS: POLYETHYLENE GLYCOL 17 GM PACKET PO (08:54)
[2018-04-18] MEDS: AMLODIPINE 5 MG TAB PO (08:54)
[2018-04-18] MEDS: DOXYCYCLINE 100 MG TAB PO ×2 (08:54→20:17)
[2018-04-18] MEDS: VANCOMYCIN 1 GM 250 ML IVPB ×2 (10:57→19:51)
[2018-04-18 11:01] LABS: HEMATOCRIT 26.3 % (42.0-52.0); HEMOGLOBIN 8.3 g/dl (14.0-18.0)
[2018-04-18] MEDS: HEPARIN 5,000 UNIT/1 ML VIAL SC (20:19)
[2018-04-18] MEDS: ACETAMINOPHEN 325 MG TAB PO (21:58)
[2018-04-19] MEDS: HYDROmorphONE 1 MG/ML SYG IV ×5 (03:22→20:41)
[2018-04-19] MEDS: VANCOMYCIN 1 GM 250 ML IVPB ×3 (03:24→18:35)
[2018-04-19 06:27] LABS: ADD MAN DIFF? NO
[2018-04-19 06:30] LABS: WHITE BLOOD COUNT 10.1 10^3/ul (4.8-10.8)
[2018-04-19 06:30] LABS: BASOPHILS % 0.2 % (0.0-2.0); EOSINOPHILS # 0.1 10^3/ul (0.0-0.5); EOSINOPHILS % 1.1 % (0.0-7.0); HEMATOCRIT 26.3 % (42.0-52.0); HEMOGLOBIN 8.4 g/dl (14.0-18.0); LYMPHOCYTES # 1.7 10^3/ul (0.8-2.9); LYMPHOCYTES % 16.8 % (15.0-51.0); MEAN CORPUSCULAR HEMOGLOBIN 23.1 pg (29.0-33.0); MEAN CORPUSCULAR HGB CONC 31.9 g/dl (32.0-37.0); MEAN CORPUSCULAR VOLUME 72.5 fl (82.0-101.0); MEAN PLATELET VOLUME 8.4 fl (7.4-10.4); MONOCYTES % 9.8 % (0.0-11.0); NEUTROPHIL # 7.2 10^3/ul (1.6-7.5); NEUTROPHILS % 71.4 % (39.0-77.0); PLATELET COUNT 531 10^3/UL (140-415); RED BLOOD COUNT 3.63 10^6/ul (4.70-6.10); RED CELL DISTRIBUTION WIDTH 18.8 % (11.5-14.5)
[2018-04-19 06:52] LABS: INR 1.18; PROTIME 15.1 Sec (11.9-14.9); PT RATIO 1.2
[2018-04-19 06:53] LABS: PARTIAL THROMBOPLASTIN TIME 40.8 Sec (23.0-35.0)
[2018-04-19] MEDS: MEROPENEM 1 GM/50ML(PMX) 50 ML IVPB ×3 (06:54→21:02)
[2018-04-19 07:02] LABS: ALANINE AMINOTRANSFERASE 21 IU/L (13-69); ALBUMIN 3.2 g/dl (3.3-4.9); ALBUMIN/GLOBULIN RATIO 0.66; ALKALINE PHOSPHATASE 538 IU/L (42-121); ANION GAP 10 (5-13); ASPARTATE AMINO TRANSFERASE 40 IU/L (15-46); BILIRUBIN,INDIRECT 0.1 mg/dl (0-1.1); BILIRUBIN,TOTAL 0.1 mg/dl (0.2-1.3); BLOOD UREA NITROGEN 8 mg/dl (7-20); CALCIUM 9.2 mg/dl (8.4-10.2); CARBON DIOXIDE 28 mmol/L (21-31); CHLORIDE 105 mmol/L (97-110); CREATININE 0.83 mg/dl (0.61-1.24); Estimated GFR > 60 mL/min (>60); GLUCOSE 82 mg/dl (70-220); POTASSIUM 4.3 mmol/L (3.5-5.1); SODIUM 143 mmol/L (135-144)
[2018-04-19] MEDS: AMLODIPINE 5 MG TAB PO ×2 (08:29→13:19)
[2018-04-19] MEDS: DOCUSATE SODIUM 100 MG CAP PO ×3 (08:29→20:53)
[2018-04-19] MEDS: POLYETHYLENE GLYCOL 17 GM PACKET PO ×2 (08:29→13:19)
[2018-04-19] MEDS ORDERED: VORICONAZOLE IVPB (09:00)
[2018-04-19] MEDS ORDERED: SOD CHLORIDE 0.9% IVPB (09:00)
[2018-04-19] MEDS: DOXYCYCLINE 100 MG TAB PO ×3 (09:00→21:02)
[2018-04-19] MEDS: OSELTAMIVIR 75 MG CAP PO ×3 (09:00→21:02)
[2018-04-19] MEDS: METOPROLOL (XL) 50 MG TAB PO ×2 (09:00→13:19)
[2018-04-19] MEDS: VORICONAZOLE IVPB ×2 (13:11→23:38)
[2018-04-19] MEDS: SOD CHLORIDE 0.9% IVPB ×2 (13:11→23:38)
[2018-04-20] MEDS: HYDROmorphONE 1 MG/ML SYG IV ×5 (01:12→23:00)
[2018-04-20] MEDS: ACETAMINOPHEN 325 MG TAB PO (01:20)
[2018-04-20] MEDS: VANCOMYCIN 1 GM 250 ML IVPB ×3 (03:11→20:35)
[2018-04-20] MEDS: MEROPENEM 1 GM/50ML(PMX) 50 ML IVPB ×3 (05:54→23:03)
[2018-04-20] MEDS ORDERED: LIDOCAINE 2% (SDV) 5 ML INJ (07:00)
[2018-04-20] MEDS ORDERED: PROPOFOL 200 MG INJ (07:00)
[2018-04-20] MEDS: POLYETHYLENE GLYCOL 17 GM PACKET PO (08:19)
[2018-04-20] MEDS: DOCUSATE SODIUM 100 MG CAP PO ×2 (08:19→20:36)
[2018-04-20] MEDS: METOPROLOL (XL) 50 MG TAB PO (08:20)
[2018-04-20] MEDS: OSELTAMIVIR 75 MG CAP PO ×2 (08:20→20:36)
[2018-04-20] MEDS: AMLODIPINE 5 MG TAB PO (08:20)
[2018-04-20] MEDS: DOXYCYCLINE 100 MG TAB PO ×2 (08:21→20:36)
[2018-04-20] MEDS ORDERED: MIDAZOLAM 1 MG/ML 2 ML INJ (12:44)
[2018-04-20] MEDS ORDERED: LABETALOL HCL 20MG INJ (12:49)
[2018-04-20] MEDS: LIDOCAINE 1%/EPI (1:100,000) (MDV) 20 ML (12:56)
[2018-04-20] MEDS: BUPIVACAINE 0.25% (MPF) 30 ML INJ (12:58)
[2018-04-20] MEDS ORDERED: ACETAMINOPHEN 325 MG TAB PO (14:00)
[2018-04-20] MEDS ORDERED: LABETALOL HCL 20MG INJ IV (14:00)
[2018-04-20] MEDS ORDERED: ONDANSETRON 4 MG INJ IV ×2 (14:00)
[2018-04-20] MEDS ORDERED: NACL 0.9% 3 ML SYG IV (14:00)
[2018-04-20] MEDS ORDERED: HYDROmorphONE 1 MG/5 ML IV SYRINGE IV ×3 (14:00→14:10)
[2018-04-20] MEDS: HYDROCODONE/APAP (5/325) TAB PO (14:38)
[2018-04-20] MEDS: morphine 2 MG INJ IV (14:39)
[2018-04-20] MEDS: HYDROmorphONE 1 MG/5 ML IV SYRINGE IV (14:39)
[2018-04-20] MEDS: SOD CHLORIDE 0.9% IVPB (15:21)
[2018-04-20] MEDS: VORICONAZOLE IVPB (15:21)
[2018-04-20 18:35] LABS: VANCOMYCIN,TROUGH 17.1 ug/ml (10.0-20.0)
[2018-04-20] MEDS: METOPROLOL 25 MG TAB PO (20:36)
[2018-04-21] MEDS: VORICONAZOLE IVPB ×2 (00:34→14:08)
[2018-04-21] MEDS: SOD CHLORIDE 0.9% IVPB ×2 (00:34→14:08)
[2018-04-21] MEDS: HYDROmorphONE 1 MG/ML SYG IV ×7 (02:59→23:55)
[2018-04-21] MEDS: VANCOMYCIN 1 GM 250 ML IVPB ×3 (03:46→19:34)
[2018-04-21] MEDS: ACETAMINOPHEN 325 MG TAB PO ×3 (05:24→20:53)
[2018-04-21] MEDS: MEROPENEM 1 GM/50ML(PMX) 50 ML IVPB ×3 (05:25→23:00)
[2018-04-21 06:53] LABS: BLOOD UREA NITROGEN 7 mg/dl (7-20)
[2018-04-21 06:53] LABS: CREATININE 0.79 mg/dl (0.61-1.24)
[2018-04-21] MEDS: DOCUSATE SODIUM 100 MG CAP PO ×2 (08:11→21:03)
[2018-04-21] MEDS: OSELTAMIVIR 75 MG CAP PO ×2 (08:11→21:03)
[2018-04-21] MEDS: DOXYCYCLINE 100 MG TAB PO ×2 (08:11→21:03)
[2018-04-21] MEDS: METOPROLOL (XL) 50 MG TAB PO (08:12)
[2018-04-21] MEDS: METOPROLOL 25 MG TAB PO (08:12)
[2018-04-21] MEDS: POLYETHYLENE GLYCOL 17 GM PACKET PO (08:13)
[2018-04-21] MEDS: AMLODIPINE 5 MG TAB PO (08:55)
[2018-04-21 16:23] LABS: INFLUENZA VIRUS A/B SOURCE SWAB
[2018-04-21 19:52] LABS: NIL 0.02 IU/mL; QUANTIFERON(R)-TB GOLD NEGATIVE (NEGATIVE); TB-NIL 0.01 IU/mL
[2018-04-21 23:42] LABS: CRYPTOCOCCAL ANTIGEN - SOURCE SERUM
[2018-04-22 00:32] LABS: HISTOPLASMA GALACTOMANNAN AG U <0.5
[2018-04-22] MEDS: SOD CHLORIDE 0.9% IVPB ×2 (02:02→12:29)
[2018-04-22] MEDS: VORICONAZOLE IVPB ×2 (02:02→12:29)
[2018-04-22] MEDS: morphine 2 MG INJ IV ×2 (02:11→05:05)
[2018-04-22] MEDS: HYDROmorphONE 1 MG/ML SYG IV ×4 (03:54→16:16)
[2018-04-22] MEDS: VANCOMYCIN 1 GM 250 ML IVPB ×2 (05:52→11:04)
[2018-04-22] MEDS: MEROPENEM 1 GM/50ML(PMX) 50 ML IVPB ×2 (07:21→14:10)
[2018-04-22] MEDS: DOXYCYCLINE 100 MG TAB PO (08:03)
[2018-04-22] MEDS: POLYETHYLENE GLYCOL 17 GM PACKET PO (08:03)
[2018-04-22] MEDS: OSELTAMIVIR 75 MG CAP PO (08:04)
[2018-04-22] MEDS: AMLODIPINE 5 MG TAB PO (08:04)
[2018-04-22] MEDS: DOCUSATE SODIUM 100 MG CAP PO (08:05)
[2018-04-22] MEDS: METOPROLOL (XL) 50 MG TAB PO (08:05)
[2018-04-22 15:27] LABS: HIV 1&2 ANTIBODY NEGATIVE (NEGATIVE)
[2018-04-22] MEDS: ACETAMINOPHEN 325 MG TAB PO (16:16)
[2018-04-22 20:17] LABS: ADD UMIC YES; UR ASCORBIC ACID NEGATIVE (NEGATIVE); UR BACTERIA FEW /HPF (NONE SEEN); UR BILIRUBIN (Dip) NEGATIVE (NEGATIVE); UR BLOOD (Dip) 1+ mg/dL (NEGATIVE); UR CLARITY TURBID (CLEAR); UR COLOR AMBER (YELLOW); UR GLUCOSE (Dip) NEGATIVE (NEGATIVE); UR KETONES (Dip) NEGATIVE (NEGATIVE); UR LEUKOCYTE ESTERASE (Dip) NEGATIVE Leu/ul (NEGATIVE); UR NITRITE (Dip) NEGATIVE (NEGATIVE); UR RBC 4 /HPF (0-5); UR SPECIFIC GRAVITY (Dip) 1.012 (1.003-1.030); UR TOTAL PROTEIN (Dip) 1+ mg/dl (NEGATIVE); UR UROBILINOGEN (Dip) NEGATIVE (NEGATIVE); UR WBC 5 /HPF (0-5)
[2018-04-23 12:46] LABS: PROCALCITONIN 0.19 ng/mL (<0.10)
== END 2018-04-22 18:53 | disposition short-term general hospital (02) | DRG 853 ==
LOC: PP2 21:37 → E/R 19:42 → 6WM 04-18 21:20
PROC: 07B20ZX Excision of Left Neck Lymphatic, Open Approach, Diagnostic (ICD-10-PCS; principal; 2018-04-20 11:30)
PROC: 30233N1 Transfusion of Nonautologous Red Blood Cells into Peripheral Vein, Percutaneous Approach (ICD-10-PCS; 2018-04-20 12:38)
DX: A41.9 Sepsis, unspecified organism (principal); J18.9 Pneumonia, unspecified organism; N17.9 Acute kidney failure, unspecified; J91.0 Malignant pleural effusion; J98.19 Other pulmonary collapse; R18.0 Malignant ascites; C77.8 Secondary and unspecified malignant neoplasm of lymph nodes of multiple regions; C79.00 Secondary malignant neoplasm of unspecified kidney and renal pelvis; C78.00 Secondary malignant neoplasm of unspecified lung; C78.7 Secondary malignant neoplasm of liver and intrahepatic bile duct; C79.89 Secondary malignant neoplasm of other specified sites; D63.0 Anemia in neoplastic disease; I10 Essential (primary) hypertension; R73.03 Prediabetes; M25.562 Pain in left knee; Z85.47 Personal history of malignant neoplasm of testis
CPT/HCPCS: 36415; 36430; 70492; 71045; 71260; 74177; 76705; 80053; 80061; 80202; 81001; 82565; 82728; 83036; 83540; 83605; 83690; 83735; 83880; 84100; 84145; 84443; 84484; 84520; 85014; 85018; 85025; 85045; 85610; 85730; 86480; 86635; 86641; 86703; 86850; 86900; 86901; 86920; 87040; 87086; 87275; 87276; 87279; 87280; 87385; 87400; 87449; 87502; 88307; 88341; 88342; 93005; 93306; 99291-25

== ENCOUNTER 2018-05-18 12:47 | Inpatient (IN) | payer BC ==
[2018-05-18 14:04] LABS: WHITE BLOOD COUNT 8.9 10^3/ul (4.8-10.8)
[2018-05-18 14:04] LABS: ABNORMAL IP MESSAGE 1; HEMATOCRIT 21.9 % (42.0-52.0); HEMOGLOBIN 7.1 g/dl (14.0-18.0); MEAN CORPUSCULAR HEMOGLOBIN 23.9 pg (29.0-33.0); MEAN CORPUSCULAR HGB CONC 32.4 g/dl (32.0-37.0); MEAN CORPUSCULAR VOLUME 73.7 fl (82.0-101.0); MEAN PLATELET VOLUME 9.6 fl (7.4-10.4); NUCLEATED RED BLOOD CELLS% 0.4 /100WBC (0.0-0.0); PLATELET COUNT 42 10^3/UL (140-415); POSITIVE DIFF @See below; RED BLOOD COUNT 2.97 10^6/ul (4.70-6.10); RED CELL DISTRIBUTION WIDTH 19.8 % (11.5-14.5)
[2018-05-18 14:05] LABS: ADD MAN DIFF? YES
[2018-05-18] MEDS: SOD CHLORIDE 0.9% 500 ML IV (14:06)
[2018-05-18 14:20] LABS: ANION GAP 9 (5-13); BLOOD UREA NITROGEN 12 mg/dl (7-20); CARBON DIOXIDE 22 mmol/L (21-31); CHLORIDE 108 mmol/L (97-110); CREATININE 0.93 mg/dl (0.61-1.24); Estimated GFR > 60 mL/min (>60); GLUCOSE 110 mg/dl (70-220); LIPASE 381 U/L (23-300); POTASSIUM 3.1 mmol/L (3.5-5.1); SODIUM 139 mmol/L (135-144)
[2018-05-18 14:23] LABS: PROTIME 15.3 Sec (11.9-14.9); PT RATIO 1.2
[2018-05-18 14:24] LABS: PARTIAL THROMBOPLASTIN TIME 34.8 Sec (23.0-35.0)
[2018-05-18 14:38] LABS: ANISOCYTOSIS 2+ (0-0); BAND NEUTROPHILS #M 2.1 10^3/ul (0.0-0.6); BAND NEUTROPHILS % (M) 24 % (0-4); ERYTHROBLAST% (NRBC) (M) 1 % (0-0); HYPOCHROMASIA 2+ (0-0); LYMPHOCYTES #M 1.2 10^3/ul (0.8-2.9); LYMPHOCYTES % (M) 14 % (15-51); METAMYELOCYTES %M 1 % (0-0); MICROCYTOSIS 2+ (0-0); MONOCYTE #M 0.9 10^3/ul (0.3-0.9); MONOCYTES % (M) 11 % (0-11); PLATELET ESTIMATE DECREASED; POLYCHROMASIA 1+ (0-0); PROMYELOCYTES % (M) 1 % (0-0); RBC MORPHOLOGY COMMENT @See below; SEG NEUT #M 4.2 10^3/ul (1.6-7.5); SEGMENTED NEUTROPHILS (M) % 45 % (39-77); SMUDGE%M 2 % (0-0); WBC MORPHOLOGY COMMENT @See below
[2018-05-18] MEDS: HYDROmorphONE 2 MG/ML SYG IV (14:55)
[2018-05-18] MEDS ORDERED: D5W-0.45 NACL + KCL 20 MEQ 1,000 ML IV (15:10)
[2018-05-18] MEDS ORDERED: morphine 2 MG INJ IV (15:30)
[2018-05-18] MEDS ORDERED: POTASSIUM CHLORIDE 100 ML IVPB (15:30)
[2018-05-18] MEDS ORDERED: NACL 0.9% 3 ML SYG IV (15:30)
[2018-05-18] MEDS ORDERED: ACETAMINOPHEN 325 MG TAB PO (15:30)
[2018-05-18] MEDS ORDERED: ONDANSETRON 4 MG INJ IV (15:30)
[2018-05-18] MEDS ORDERED: POTASSIUM CHLORIDE (SR) 20 MEQ TAB PO (16:30)
[2018-05-18 16:52] LABS: IMMEDIATE SPIN CROSSMATCH 1 2
[2018-05-18] MEDS: OXYCODONE/ACETAMINOPHEN (10/325) TAB PO (19:57)
[2018-05-18] MEDS: POTASSIUM CHLORIDE 20 MEQ POWDER FOR ORAL SOLN PO (20:47)
[2018-05-18] MEDS: SOD CHLORIDE 0.9% 1,000 ML IV (20:48)
[2018-05-18] MEDS: HYDROmorphONE 0.5 MG/0.5 ML SYG IV (20:48)
[2018-05-19] MEDS: HYDROmorphONE 0.5 MG/0.5 ML SYG IV ×5 (01:12→13:53)
[2018-05-19] MEDS: PANTOPRAZOLE 40 MG INJ IV (05:17)
[2018-05-19 05:22] LABS: WHITE BLOOD COUNT 12.6 10^3/ul (4.8-10.8)
[2018-05-19 05:22] LABS: ABNORMAL IP MESSAGE 1; HEMATOCRIT 25.1 % (42.0-52.0); HEMOGLOBIN 8.1 g/dl (14.0-18.0); MEAN CORPUSCULAR HEMOGLOBIN 24.5 pg (29.0-33.0); MEAN CORPUSCULAR HGB CONC 32.3 g/dl (32.0-37.0); MEAN CORPUSCULAR VOLUME 76.1 fl (82.0-101.0); MEAN PLATELET VOLUME 9.1 fl (7.4-10.4); NUCLEATED RED BLOOD CELLS% 0.2 /100WBC (0.0-0.0); PLATELET COUNT 39 10^3/UL (140-415); POSITIVE DIFF @See below; RED CELL DISTRIBUTION WIDTH 20.6 % (11.5-14.5)
[2018-05-19 05:24] LABS: ADD MAN DIFF? YES
[2018-05-19 05:47] LABS: HEMOGLOBIN A1C 5.6 % (0-5.9)
[2018-05-19 06:08] LABS: ALANINE AMINOTRANSFERASE 60 IU/L (13-69); ALBUMIN 3.4 g/dl (3.3-4.9); ALBUMIN/GLOBULIN RATIO 0.82; ALKALINE PHOSPHATASE 303 IU/L (42-121); ANION GAP 6 (5-13); ASPARTATE AMINO TRANSFERASE 26 IU/L (15-46); BILIRUBIN,INDIRECT 0.2 mg/dl (0-1.1); BILIRUBIN,TOTAL 0.2 mg/dl (0.2-1.3); BLOOD UREA NITROGEN 11 mg/dl (7-20); CALCIUM 8.9 mg/dl (8.4-10.2); CARBON DIOXIDE 24 mmol/L (21-31); CHLORIDE 112 mmol/L (97-110); CREATININE 0.95 mg/dl (0.61-1.24); Estimated GFR > 60 mL/min (>60); GLUCOSE 86 mg/dl (70-220); MAGNESIUM 1.9 mg/dl (1.7-2.5); POTASSIUM 3.5 mmol/L (3.5-5.1); SODIUM 142 mmol/L (135-144); TOTAL PROTEIN 7.5 g/dl (6.1-8.1)
[2018-05-19 07:21] LABS: ANISOCYTOSIS 3+ (0-0); BAND NEUTROPHILS #M 0.2 10^3/ul (0.0-0.6); BAND NEUTROPHILS % (M) 2 % (0-4); ERYTHROBLAST% (NRBC) (M) 1 % (0-0); HYPOCHROMASIA 1+ (0-0); LYMPHOCYTES #M 1.7 10^3/ul (0.8-2.9); LYMPHOCYTES % (M) 14 % (15-51); MICROCYTOSIS 3+ (0-0); MONOCYTE #M 0.8 10^3/ul (0.3-0.9); MONOCYTES % (M) 7 % (0-11); MYELOCYTES #M 0.6 10^3/ul (0.0-0.0); MYELOCYTES % (M) 5 % (0-0); PLATELET ESTIMATE DECREASED; POLYCHROMASIA 3+ (0-0); PROMYELOCYTES #M 0.7 10^3/ul (0-0); PROMYELOCYTES % (M) 6 % (0-0); SEG NEUT #M 8.3 10^3/ul (1.6-7.5); SEGMENTED NEUTROPHILS (M) % 66 % (39-77); SMUDGE%M 8 % (0-0); TOXIC GRANULATION 1+ (0-0)
[2018-05-19] MEDS: POTASSIUM CHLORIDE 20 MEQ POWDER FOR ORAL SOLN PO (08:55)
[2018-05-19] MEDS: METOPROLOL (XL) 50 MG TAB PO (08:56)
== END 2018-05-19 15:12 | disposition home or self-care (01) | DRG 812 ==
LOC: E/R 12:47 → MS1 15:23
PROVIDERS: Pediatrics
PROC: 093K7ZZ Control Bleeding in Nasal Mucosa and Soft Tissue, Via Natural or Artificial Opening (ICD-10-PCS; principal; 2018-05-18)
PROC: 30233N1 Transfusion of Nonautologous Red Blood Cells into Peripheral Vein, Percutaneous Approach (ICD-10-PCS; 2018-05-18)
DX: D64.9 Anemia, unspecified (principal); R04.0 Epistaxis; C62.90 Malignant neoplasm of unspecified testis, unspecified whether descended or undescended; D69.6 Thrombocytopenia, unspecified; R00.0 Tachycardia, unspecified; I10 Essential (primary) hypertension; E87.6 Hypokalemia
CPT/HCPCS: 36415; 36430; 80048; 80053; 83036; 83690; 83735; 85025; 85610; 85730; 86850; 86900; 86901; 86920; 96374; 99285-25